=== PATIENT | female | born 1980 | race Caucasian/White ===

== ENCOUNTER 2017-01-08 19:34 | Inpatient (IN) | payer OTHER ==
[2017-01-08] VITALS (10 sets, daily range): BP systolic 105–137; BP diastolic 54–87
[~2017-01-08] VITALS: Ht 167.6 cm; Wt 115.0 kg
[~2017-01-08 19:34] MED LIST: Colace PO; Motrin PO; NATALCARE RX1 TABLET PO
[2017-01-08 20:39] LABS: EOSINOPHIL (%) 0.6 % (0-5); EOSINOPHIL COUNT 0.1 K/uL (0-0.3); HEMATOCRIT 35.4 % (36.0-46.0); IMMATURE GRANULOCYTE (%) 0.7 % (0.0-0.7); IMMATURE GRANULOCYTE COUNT 0.1 K/uL; INSTRUMENT ABS NEUTROPHIL CT 7.3 K/uL; LYMPHOCYTE COUNT 2.2 K/uL (1.0-2.8); MCHC 34.2 G/DL (30.0-36.0); MCV 87.6 FL (83-99); MEAN PLAT.VOLUME 9.9 uM^3 (9.5-12.4); MONOCYTE (%) 6.8 % (3-12); MONOCYTE COUNT 0.7 K/uL (0-0.8); NEUTROPHIL (%) 70.6 % (45-76); NEUTROPHIL COUNT 7.3 K/uL (1.8-6.4); PLATELET COUNT 218 K/uL (156-360); RBC DIS.WIDTH-CV 13.6 % (11.8-14.6); RBC DIS.WIDTH-SD 43.6 % (39-53); RED BLOOD COUNT 4.04 M/uL (3.80-5.20); WHITE BLOOD COUNT 10.3 K/uL (4.1-10.2)
[2017-01-09] VITALS (12 sets, daily range): BP systolic 96–135; BP diastolic 50–84
[2017-01-09] MEDS ORDERED: MOTRIN800 MG PO (02:17)
[2017-01-09] MEDS ORDERED: CLARITIN10 M3 PO (05:36)
[2017-01-09] MEDS ORDERED: FLONASE ALLERG9.9 ML BOTH NARES (05:37)
[2017-01-10 07:50] VITALS: BP 112/65
== END 2017-01-10 14:07 | disposition home or self-care (01) | DRG 775 ==
LOC: LDRP-OP 19:34 → 2WEST 19:35 → LDRP-OP 02-23 14:52
PROVIDERS: Midwife
DX: O99.824 Streptococcus B carrier state complicating childbirth (principal); O99.214 Obesity complicating childbirth; Z37.0 Single live birth; E66.9 Obesity, unspecified; Z3A.37 37 weeks gestation of pregnancy; Z68.41 Body mass index [BMI] 40.0-44.9, adult
CPT/HCPCS: 85025; C1755; G0378; J2540; J3010; J7120